=== PATIENT | female | born 1945 | race Hispanic/Latino ===

== ENCOUNTER → 2023-10-03 | Outpatient (CLI) | payer OTHER ==
[2023-10-03 10:11] LABS: CREATININE 1.1 mg/dL (0.5-1.0)
== END | disposition home or self-care (01) ==
LOC: LAB 09:24
PROVIDERS: ATTEND Surgery
DX: K57.92 Diverticulitis of intestine, part unspecified, without perforation or abscess without bleeding (principal)
CPT/HCPCS: 36415; 82565; 84520

== ENCOUNTER → 2023-10-12 | Outpatient (CLI) | payer OTHER ==
[~2023-10-12] MED LIST: IOHEXOL-350 75 ML VIAL IV ONE
== END | disposition home or self-care (01) ==
LOC: RAH 09:54
PROVIDERS: ATTEND Surgery
DX: K43.9 Ventral hernia without obstruction or gangrene (principal); K42.9 Umbilical hernia without obstruction or gangrene; N28.1 Cyst of kidney, acquired; N32.89 Other specified disorders of bladder; K57.92 Diverticulitis of intestine, part unspecified, without perforation or abscess without bleeding; I70.90 Unspecified atherosclerosis; M47.815 Spondylosis without myelopathy or radiculopathy, thoracolumbar region
CPT/HCPCS: 74177; Q9967

== ENCOUNTER 2023-11-30 06:48 | Day surgery (SDC) | payer OTHER, MEDICARE ==
[2023-11-30] VITALS (11 sets, daily range): BP systolic 104–142; BP diastolic 43–65; PULSE 59–68; RESP 13–21; TEMP 97.8–97.9
[~2023-11-30] VITALS: Ht 144.8 cm; Wt 65.8 kg
[~2023-11-30 06:48] MED LIST changes: +ALEN70TA80 PO; +ATOR40TA69 PO; +EMPA25TA PO; -IOHEXOL-350 75 ML VIAL IV ONE; +LEVO25CA4 PO; +LINA5TAB PO; +LISI40TA9 PO; +METF-444 PO; +OMEP20CA12 PO; +PREG50 PO
[2023-11-30] MEDS: 0.9%NACL 1000ML 1,000 ML IV ONE (07:22)
[2023-11-30] MEDS ORDERED: proPOFol 10 MG/ML 20ML VIAL IV ONE (09:02)
== END 2023-11-30 10:40 | disposition home or self-care (01) ==
LOC: ENDO 06:48 → DAH 06:48 → ENDO 10:40
PROVIDERS: ATTEND Internal Medicine Gastroenterology
DX: R93.3 Abnormal findings on diagnostic imaging of other parts of digestive tract (principal); D17.5 Benign lipomatous neoplasm of intra-abdominal organs; K83.9 Disease of biliary tract, unspecified; K92.9 Disease of digestive system, unspecified; K29.70 Gastritis, unspecified, without bleeding; B96.81 Helicobacter pylori [H. pylori] as the cause of diseases classified elsewhere; K57.92 Diverticulitis of intestine, part unspecified, without perforation or abscess without bleeding; D12.6 Benign neoplasm of colon, unspecified; K59.04 Chronic idiopathic constipation; I10 Essential (primary) hypertension; E11.9 Type 2 diabetes mellitus without complications; E78.00 Pure hypercholesterolemia, unspecified; F41.9 Anxiety disorder, unspecified; M81.0 Age-related osteoporosis without current pathological fracture; M19.90 Unspecified osteoarthritis, unspecified site; Z85.038 Personal history of other malignant neoplasm of large intestine; Z98.49 Cataract extraction status, unspecified eye; Z88.8 Allergy status to other drugs, medicaments and biological substances; Z79.84 Long term (current) use of oral hypoglycemic drugs; Z79.899 Other long term (current) drug therapy
CPT/HCPCS: 43237; 82948 ×2; J7030 ×2; J2704; A4620; A4215 ×2; A4223; A4657; A4222; A4221; A4663; A4606; J3490

== ENCOUNTER 2024-12-14 06:47 | Observation (INO) | payer OTHER, MEDICARE ==
[2024-12-12 12:04] LABS: IMMATURE GRANULOCYTE ABSOLUTE 0.02 K/uL (0-1); NUCLEATED RED BLOOD CELLS 0.0 % (0.0-0.19); PLATELET COUNT (AUTO) 143 K/uL (130-400); RED BLOOD CELL COUNT(AUTO) 3.75 MIL/uL (4.00-5.50); RED CELL DISTRIBUTION WIDTH 13.7 % (11.0-15.5); WHITE BLOOD COUNT (AUTO) 6.7 K/uL (4.8-10.8)
[2024-12-12 12:12] LABS: APPEARANCE,URINE CLEAR (CLEAR); GLUCOSE, URINE (UA) >=1000 mg/dL (NEGATIVE); LEUKOCYTE ESTERASE ,URINE NEGATIVE Leu/uL (NEGATIVE); NITRATE,URINE NEGATIVE (NEGATIVE); OCCULT BLOOD,URINE NEGATIVE (NEGATIVE)
[2024-12-12 12:13] LABS: ADD UA MICROSCOPIC YES
[2024-12-12 12:14] LABS: SQUAMOUS EPITHELIAL CELL,UR RARE /HPF (0-2)
[2024-12-12 12:15] VITALS: BP 143/67; PULSE 78; RESP 18; TEMP 97.5
--- NOTE | 2024-12-12 12:43 | NUR ---
IS DONE BY MARISELA.
[2024-12-14] VITALS (28 sets, daily range): BP systolic 113–167; BP diastolic 49–86; PULSE 71–96; RESP 14–18; TEMP 97.2–98.4; O2SAT 96–99
[~2024-12-14] VITALS: Ht 144.8 cm; Wt 68.6 kg
[~2024-12-14 06:47] MED LIST changes: -ALEN70TA80 PO; +CYCL-309 PO; +DOCU100T PO; +FERR-72 PO; +FOLI1 PO; -LEVO25CA4 PO; +LEVO25CA5 PO; +LISI40TA15 PO; -LISI40TA9 PO; -OMEP20CA12 PO; +SIME-12 PO
[2024-12-14] MEDS: 0.9%NACL 1000ML 1,000 ML IV ONE (06:53)
[2024-12-14] MEDS ORDERED: TRANEXAMIC ACID 1000MG/10ML ONE (07:20)
[2024-12-14] MEDS ORDERED: VANCOMYCIN 500MG+NS 100ML 100 ML IV ONE (07:21)
[2024-12-14] MEDS: SUGAMMADEX SODIUM 200 MG/2 ML VIAL IV ONE (07:56)
[2024-12-14] MEDS: VANCOMYCIN 1G VIAL IV ONE (08:19)
[2024-12-14] MEDS: TRANEXAMIC ACID 1000MG/10ML IV ONE (08:34)
[2024-12-14] MEDS ORDERED: PROMETHAZINE HCL 25 MG/ML 1ML AMPULE IM PRN (09:00)
[2024-12-14] MEDS ORDERED: SUCCINYLCHOLINE CHLORIDE 20 MG/ML 10 ML VIAL ONE (10:38)
[2024-12-14] MEDS ORDERED: LIDOCAINE PF 100MG/5ML (2%) SYRINGE 5ML ONE (10:38)
[2024-12-14] MEDS ORDERED: MIDAZOLAM HCL 1 MG/ML 2ML VIAL ONE (10:39)
[2024-12-14] MEDS ORDERED: PoTASSium chl 10% ELIXIR 20MEQ 20 MEQ/15 ML UDCUP PO PRN (11:00)
[2024-12-14] MEDS ORDERED: FERROUS FUMARATE 324 MG TABLET PO PRN (11:00)
[2024-12-14] MEDS ORDERED: CALCIUM CARB 500MG PO PRN (11:00)
[2024-12-14] MEDS ORDERED: PoTASSium chloRIDE 20MEQ ER 20 MEQ ERTAB PO PRN (11:00)
--- NOTE | 2024-12-14 11:00 | OP ---
Operative Note: DATE OF PROCEDURE: 12/14/24 SURGEON: BJORN CARRANZA MD MENTAL HEALTH CONSULTANT: [Leila Dunn CFA] ANESTHESIA: [General anesthesia plus regional block] ANESTHESIOLOGIST/FREIGHT HANDLER: [Adrian Magallanes CRNA] PREOPERATIVE DIAGNOSIS: [Right knee osteoarthritis] POSTOPERATIVE DIAGNOSIS: [Same] IMPLANTS: [Biomet vanguard. Femur size 62.5, PS right. Tibia size 67 fixed cruciate. Tibial liner size12 x 63/67 PS plus, patella size 31 X 8 asymmetric] PROCEDURE: [Right total knee arthroplasty] ESTIMATED BLOOD LOSS: [Less than 100 mL] INDICATIONS: [The patient is a 79-year-old female with a history of severe osteoarthritis in both of her knees. The patient has developed a flexion contracture as well as a very restricted range of motion secondary to large osteophytes present in the posterior aspect of the joint. The patient has been treated conservatively with no improvement and she has been admitted for a right total knee arthroplasty. Procedure understood, risks, benefits and possible complications and agreed to sign the consent form.] DESCRIPTION OF PROCEDURE: [After adequate general anesthesia was achieved and regional block obtained the right lower extremity was prepped and draped in the usual manner previous placement of the tourniquet in the proximal thigh. The extremity was then elevated and exsanguinated with an Esmarch bandage and the tourniquet inflated to 250 mmHg the Esmarch band been then removed. With the knee in minimal flexion due to the inability to flex properly secondary to posterior osteophytes present a longitudinal incision was made in the anterior aspect through the skin followed by dissection of the subcutaneous tissue. A bone infusion needle was then inserted just medial to the tibial tuberosity and through this needle we injected into the bone a solution of normal saline 50 mL mixed with 500 mg of vancomycin. The needle was removed. A paramedian approach was then made with the Bovie cautery cutting through the quadriceps tendon, medial patellar retinaculum and patellar tendon retinaculum. The retropatellar tendon fat was then excised and the soft tissue elements of the tibia were elevated subperiosteally and retractors were applied medially and laterally . The anterior cruciate ligament was absent. Due to the significant tightness and difficulty to expose the distal femur after removing all the peripheral osteophytes we proceeded to extend the knee and varsha the patella and proceeded to do the cut to the articular surface with the use of the oscillating saw, which he was room to applied then a retractor in the lateral aspect of the tibia and then being able to start working in the distal femur. With the use of a drill a starting hole was made in the distal femur entering the intramedullary canal and then after removal of the drill an intramedullary guide was inserted with a 5 degree valgus block that touched the distal femur and to this the distal femoral cutting guide was then applied anteriorly and was secured to the distal femur with the use of pins. The intramedullary guide was then removed and with the use of the oscillating saw we proceeded to resect the distal femur removing the fragments and the guide. The femoral sizer was then applied distally and drill holes were made removing the sizer and the 4-in-1 cutting block was then inserted and the anterior, posterior and chamfer cuts were made removing the fragments and the block. The PS cutting guide was then inserted and the intercondylar cut was made removing the fragment and the guide. The posterior cruciate ligament retractor was then inserted posterior to the tibia and this was brought forward proceeding then to apply the external tibial alignment guide and secured the proximal cutting guide to the tibia with the use of pins. With the use of the oscillating saw the proximal cut to the tibia tibia was made. The bone fragment was removed as well as the peripheral osteophytes and the trial tibia plate was chosen. At this point the menisci were removed sharply and with the use of the curved osteotome the posterior osteophytes of the femur were removed. This allowed to flex the knee much better The trial components were then inserted at the femur and tibia with a trial tibial liner bringing the knee into extension noticing that the patient had a very stable knee in flexion, extension and with valgus and varus stress after the medial collateral ligament was released subperiosteally from the proximal tibia. The knee was maintained in extension and the patella was then addressed proceeding restore the height with application of a trial component after 3 peg holes were made. The patellofemoral ligament was removed and then the patellofemoral tracking was checked noticing to be normal. At this moment all the components were removed, the tibia after the metaphyseal defect was created and while cement was being mixed on the back table we proceeded to irrigate the joint with antibiotic solution and then cover the entry to the femoral canal with a bone plug. Once the cement was ready we proceeded to apply it first to the tibia surface inserting the final component and then to the femoral surface and inserted the final component removing the excess cement and then applying a trial liner bringing the knee into extension for compression. Then we proceeded to irrigate the patella surface and dried it applying then bone cement and the final patellar component was inserted and was secured with application of a clamp. The joint was irrigated with a warm diluted Betadine solution while the cement dried followed by irrigation with antibiotic solution. The trial liner was removed as well as the patellar clamp and we proceeded then to irrigate the posterior aspect of the joint to remove all the remaining debris and the final tibial liner was inserted and locked against the tibia. The range of motion was checked and noticed to be adequate with full extension and flexion, no laxity in valgus or varus stress and with adequate patellofemoral tracking. The patient had no anterior or posterior drawer. The tourniquet was then deflated and this was followed by hemostasis and the wound was then closed with approximation of the quadriceps tendon, patellar retinaculum and patellar tendon retinaculum with #1 Vicryl close stitches alternating with #1 Ethibond stitches, and closure of the subcutaneous tissue with 2-0 Monocryl inverted stitches and the skin was closed with 3-0 Monocryl subcuticularly. The wound was covered with a suction dressing followed by application of an Collin bandage for compression and the drapes were then removed transferring the patient to the hospital bed and taken to recovery room for follow-up by anesthesia. There were no complications during the procedure.] BJORN CARRANZA MD Dec 14, 2024 11:00
[2024-12-14] MEDS: TRANEXAMIC ACID 1000MG/10ML ONE (11:33)
--- NOTE | 2024-12-14 12:27 | NUR ---
PATIENT ARRIVED TO MED SURG ROOM 403, ALERT AND ORIENTED X 3, REPORT RECEIVED FROM ELOY. PATIENT REPORTING RIGHT KNEE PAIN OF 5 TO 6 ON PAIN SCALE
[2024-12-14] MEDS: HYDROcodone/APAP 5/325 1 TAB TABLET PO PRN (12:53)
[2024-12-14] MEDS: 0.9%NACL 1000ML 1,000 ML IV SCH (13:25)
--- NOTE | 2024-12-14 14:00 | NUR ---
NURSING NOTE RECEIVED REPORT FROM ANTONI COFFMAN, ASSUMED CARE OF PATIENTS.
--- NOTE | 2024-12-14 16:44 | NUR ---
D/C PLAN CM spoke to patient and daughter Eliza at bedside. Patient lives with daughter. Daughter is patient's provider. Denies having any home health. Reports the following DME: standard walker (no wheels), bedside commode, cane, wheelchair. CM discussed returning home vs short term SNF/rehab. Daughter reports patient will have assistance 06/09. CM offered in [employer]. Obtained [facility] for any in [facility] home health. CM sent referral to [facility] per MD recommendations. CM to fax referral and follow up. Addendum: 12/14/24 at 1648 by TEE GRANADOS Amended: Links added.
--- NOTE | 2024-12-14 17:00 | NUR ---
ORTHO COORDINATOR: TEACHING REGARDING DVT AND PNEUMONIA PREVENTION, PAIN EXPECTATIONS AND PAIN MANAGEMENT. PATIENT IN BED, B SCD SLEEVES IN PLACE AND FUNCTIONING. LISBET SYSTEM IN PLACE AND FUNCTIONING, LIGHT FLASHING GREEN. ICE PACK TO SURGICAL KNEE. INCENTIVE SPIROMETER ON BEDSIDE. TABLE. PATIENT ENGLISH SPEAKING ONLY. HOSPITAL RESTAURANT OPERATIONS MANAGER UNAVAILABLE, USED FAMILY TO TRANSLATE. PATIENT RETURN DEMONSTRATED PROPER USE OF INCENTIVE SPIROMETER AND VERBALIZED PROPER FREQUENCY OF USE. PATIENT RETURN DEMONSTRATED PROPER FOOT FLEXION AND EXTENSION EXERCISES. RATIONALE FOR BOTH PROVIDED. LISBET DRESSING SYSTE REVIEWED, INDICATED IT IS TO BE REMOVED ONE WEEK FROM SURGERY. PAIN MANAGEMENT STRATEGY REVIEWED. NUMERIC PAIN SCALE REVIEWED. PATIENT INTENDS TO DISCHARGE HOME WITH HOME HEALTH PHYSICAL THERAPY, EXPECTATIONS AND NEXT STEPS IN PROCESS DISCUSSED. SET EXPECTATIONS FOR PATIENT TO SHOWER TOMORROW, RATIONALE PROVIDED. NO ADDITIONAL QUESTIONS OR CONCERNS AT THIS TIME.
[2024-12-14] MEDS ORDERED: FERROUS SULFATE 325 MG TABLET.DR PO SCH (18:00)
[2024-12-14] MEDS: CYCLOBENZAPRINE HCL 10 MG TABLET PO SCH (20:34)
[2024-12-15] VITALS (9 sets, daily range): BP systolic 91–132; BP diastolic 41–57; PULSE 81–96; RESP 17–18; TEMP 98.1–98.4; O2SAT 94–96
[2024-12-15 04:10] LABS: NUCLEATED RED BLOOD CELLS 0.0 % (0.0-0.19); PLATELET COUNT (AUTO) 123.0 K/uL (130-400); RED BLOOD CELL COUNT(AUTO) 2.95 MIL/uL (4.00-5.50); RED CELL DISTRIBUTION WIDTH 14.1 % (11.0-15.5); WHITE BLOOD COUNT (AUTO) 8.8 K/uL (4.8-10.8)
[2024-12-15 04:32] LABS: CREATININE 1.6 mg/dL (0.5-1.0); GLOMERULAR FILTR. RATE CALC 33.0 mL/min (>90); GLUCOSE,RANDOM 136.0 mg/dL (70-105); SODIUM SERUM 139.0 mmol/L (136-145); UREA NITROGEN, BLOOD 26.0 mg/dL (7-18)
[2024-12-15] MEDS: LISINOPRIL 40 MG TABLET PO SCH (09:00)
[2024-12-15] MEDS: EMPAGLIFLOZIN 25MG TABLET PO SCH (09:51)
--- NOTE | 2024-12-15 15:06 | PN ---
POD # 1, S/P R TKA VSS, afebrile. Labs reviewed Did poor with PT this morning Awake, alert, oriented, Seated on the bed with legs dangling. Family present. In goo spirits Pain moderate to severe but helped with medications. In no respiratory distress RLE with intact dressing, mild edema, distal NV intact. A: S/P right TKA. Plan: continue with PT. Awaiting approval for HH. PT recommended NH but patient refuses and wants to go home. Will dismiss tomorrow after PT. Vitals/Labs Vital Signs Date Time Temp Pulse Resp B/P (MAP) Pulse Ox O2 Delivery O2 Flow Rate FiO2 12/15/24 11:41 98.2 83 18 106/41 94 Room Air 12/14/24 20:17 2.0 12/14/24 20:00 21 Laboratory Tests 12/15/24 03:27 Medications Current Medications Cefazolin Sodium 2 gm STK-MED ONCE .ROUTE; Start 12/14/24 at 06:53; Stop 12/14/24 at 06:53; Status DC Sodium Chloride 1,000 ml @ As Directed STK-MED ONCE IV; Start 12/14/24 at 06:53; Stop 12/14/24 at 06:53; Status DC Tranexamic Acid 1,000 mg STK-MED ONCE .ROUTE; Start 12/14/24 at 07:20; Stop 12/14/24 at 07:21; Status DC Cefazolin Sodium 1 gm STK-MED ONCE .ROUTE; Start 12/14/24 at 07:20; Stop 12/14/24 at 07:21; Status DC Vancomycin HCl 100 ml @ As Directed STK-MED ONCE IV; Start 12/14/24 at 07:21; Stop 12/14/24 at 07:21; Status DC Ondansetron HCl 4 mg AD PRN IVP; Start 12/14/24 at 09:00; Stop 12/14/24 at 11:09; Status DC Metoclopramide HCl 10 mg AD PRN IVP; Start 12/14/24 at 09:00; Stop 12/14/24 at 12:34; Status DC Promethazine HCl 25 mg AD PRN IM; Start 12/14/24 at 09:00; Stop 12/14/24 at 11:09; Status DC Ketorolac Tromethamine 30 mg AD PRN IV; Start 12/14/24 at 09:00; Stop 12/14/24 at 11:09; Status DC Morphine Sulfate 2 mg AD PRN IVP; Start 12/14/24 at 09:00; Stop 12/14/24 at 11:09; Status DC Fentanyl Citrate 25 mcg Q5MIN PRN IVP; Start 12/14/24 at 09:00; Stop 12/14/24 at 11:09; Status DC Naloxone HCl 0.1 mg AD PRN IVP; Start 12/14/24 at 09:00; Stop 12/14/24 at 12:34; Status DC Cefazolin Sodium 2 gm STK-MED ONCE IVPB Last administered on 12/14/24at 08:34; Start 12/14/24 at 08:34; Stop 12/14/24 at 09:01; Status DC Tranexamic Acid 1,000 mg STK-MED ONCE IV Last administered on 12/14/24at 08:34; Start 12/14/24 at 08:34; Stop 12/14/24 at 09:01; Status DC Vancomycin HCl 1 gm STK-MED ONCE IV Last administered on 12/14/24at 08:19; Start 12/14/24 at 08:19; Stop 12/14/24 at 09:01; Status DC Cefazolin Sodium 3 gm STK-MED ONCE IVPB Last administered on 12/14/24at 08:22; Start 12/14/24 at 08:22; Stop 12/14/24 at 09:01; Status DC Fentanyl Citrate 100 mcg STK-MED ONCE .ROUTE; Start 12/14/24 at 10:07; Stop 12/14/24 at 10:07; Status DC Lidocaine HCl 100 mg STK-MED ONCE .ROUTE; Start 12/14/24 at 10:38; Stop 12/14/24 at 10:38; Status DC Ondansetron HCl 4 mg STK-MED ONCE .ROUTE; Start 12/14/24 at 10:38; Stop 12/14/24 at 10:38; Status DC Ketamine HCl 50 mg STK-MED ONCE .ROUTE; Start 12/14/24 at 10:38; Stop 12/14/24 at 10:38; Status DC Succinylcholine Chloride 200 mg STK-MED ONCE .ROUTE; Start 12/14/24 at 10:38; Stop 12/14/24 at 10:39; Status DC Ephedrine Sulfate 50 mg STK-MED ONCE .ROUTE; Start 12/14/24 at 10:39; Stop 12/14/24 at 10:39; Status DC Propofol 200 mg STK-MED ONCE IV; Start 12/14/24 at 10:39; Stop 12/14/24 at 10:39; Status DC Phenylephrine HCl 10 mg STK-MED ONCE IV; Start 12/14/24 at 10:39; Stop 12/14/24 at 10:39; Status DC Midazolam HCl 2 mg STK-MED ONCE .ROUTE; Start 12/14/24 at 10:39; Stop 12/14/24 at 10:39; Status DC Rocuronium Gap 50 mg STK-MED ONCE .ROUTE; Start 12/14/24 at 10:39; Stop 12/14/24 at 10:39; Status DC Fentanyl Citrate 100 mcg STK-MED ONCE .ROUTE; Start 12/14/24 at 10:39; Stop 12/14/24 at 10:39; Status DC Sodium Chloride 1,000 ml @ 100 mls/hr Q10H IV Last administered on 12/15/24at 06:05; Start 12/14/24 at 11:00; Stop 12/15/24 at 10:59; Status DC Polyethylene Glycol 17 gm DAILY PO Last administered on 12/15/24at 09:50; Start 12/15/24 at 09:00; Stop 01/14/25 at 08:59 Bisacodyl 10 mg DAILY PRN RC; Start 12/17/24 at 11:00; Stop 01/16/25 at 10:59 Ketorolac Tromethamine 15 mg Q6H PRN IV Last administered on 12/14/24at 15:30; Start 12/14/24 at 11:00; Stop 12/19/24 at 10:59 Ferrous Fumarate 324 mg DAILY PRN PO; Start 12/14/24 at 11:00; Stop 01/13/25 at 10:59 Temazepam 15 mg HS PRN PO; Start 12/14/24 at 11:00; Stop 01/13/25 at 10:59 Ondansetron HCl 4 mg Q6H PRN IVP; Start 12/14/24 at 11:00; Stop 01/13/25 at 10:59 Calcium Carbonate 500 mg Q12H PRN PO; Start 12/14/24 at 11:00; Stop 01/13/25 at 10:59 Diphenhydramine HCl 25 mg Q6H PRN IVP; Start 12/14/24 at 11:00; Stop 01/13/25 at 10:59 Insulin Human Regular INSULIN SLIDING SCAL... ACHS SQ Last administered on 12/14/24at 20:39; Start 12/14/24 at 11:30; Stop 01/13/25 at 11:29 Cefazolin Sodium 2 gm Q8H IVP Last administered on 12/15/24at 00:04; Start 12/14/24 at 16:00; Stop 12/15/24 at 00:01; Status DC Potassium Chloride 100 ml @ 100 mls/hr AD PRN IV; Start 12/14/24 at 11:00; Stop 01/13/25 at 10:59 Potassium Chloride 20 meq AD PRN PO; Start 12/14/24 at 11:00; Stop 01/13/25 at 10:59 Potassium Chloride 20 meq AD PRN PO; Start 12/14/24 at 11:00; Stop 01/13/25 at 10:59 Acetaminophen/ Hydrocodone Bitart Q4H PRN PO Last administered on 12/15/24at 12:04; Start 12/14/24 at 11:00; Stop 12/19/24 at 10:59 Tranexamic Acid 1,000 mg STK-MED ONCE .ROUTE Last administered on 12/14/24at 11:33; Start 12/14/24 at 11:31; Stop 12/14/24 at 11:32; Status DC Fentanyl Citrate 100 mcg STK-MED ONCE .ROUTE Last administered on 12/14/24at 11:41; Start 12/14/24 at 11:37; Stop 12/14/24 at 11:38; Status DC Atorvastatin Calcium 40 mg HS PO Last administered on 12/14/24at 20:34; Start 12/14/24 at 21:00; Stop 01/13/25 at 20:59 Cyclobenzaprine HCl 50 mg PM PO Last administered on 12/14/24at 20:34; Start 12/14/24 at 21:00; Stop 01/13/25 at 20:59 Empaglifozin 25 mg DAILY PO Last administered on 12/15/24at 09:51; Start 12/15/24 at 09:00; Stop 01/14/25 at 08:59 Linagliptin 5 mg HS PO Last administered on 12/14/24at 20:34; Start 12/14/24 at 21:00; Stop 01/13/25 at 20:59 Lisinopril 40 mg DAILY PO; Start 12/15/24 at 09:00; Stop 01/14/25 at 08:59 Metformin HCl 500 mg BID PO Last administered on 12/15/24at 09:51; Start 12/14/24 at 21:00; Stop 01/13/25 at 20:59 Docusate Sodium 100 mg AD PO; Start 12/14/24 at 18:00; Stop 01/13/25 at 17:59 Ferrous Sulfate 325 mg Q3D PO; Start 12/14/24 at 18:00; Stop 01/13/25 at 17:59 Levothyroxine Sodium 25 mcg SYN PO Last administered on 12/15/24at 06:08; Start 12/15/24 at 06:30; Stop 01/14/25 at 06:29 Pregabalin 50 mg AM PO Last administered on 12/15/24at 09:51; Start 12/15/24 at 09:00; Stop 01/14/25 at 08:59 BJORN CARRANZA MD Dec 15, 2024 15:06
--- NOTE | 2024-12-15 17:47 | NUR ---
PT NOTE This PT present when Dr. Montanez educated patient and caregivers regarding DC plan and plan of care, the importance of walking and participation with PT. This PT requested pain meds from nurse Drew as patient reports having last pain meds 5-6 hours prior. Pt agreeable and voiced understanding. Pt medicated and able to walk around bed in room max assist x1 and max cues. In PM session once again PT had to ask for pain medication for patient. Pt voicing that walking made her pain worse 10/10 and that she did not want to walk again. Family encouraging patient. Nurse provided meds. Pt continues to resist gait. Education provided about the goals for therapy, the purpose of gait, and her DC plan. PT continues to recommend SNF but patient wants to go home. This patient is high risk of readmit for pain and/ or issues related to mobility due to resistance to care. Family very supportive, but patient arguing and fighting with them. Pt does not seen to want to ask for pain medication. In PM patient walked 40 ft taking approximately 20 minutes to do so and max cues. Back to [facility] for meal with family.
[2024-12-16 00:06] VITALS: BP 134/59; PULSE 95; RESP 18; TEMP 97.8
[2024-12-16 03:48] VITALS: BP 130/53; PULSE 89; RESP 20; TEMP 97.5
[2024-12-16 08:00] VITALS: O2SAT 95
[2024-12-16 08:01] VITALS: BP 131/54; PULSE 91; RESP 16; TEMP 99.5
[2024-12-16] MEDS ORDERED: AEC81 PO (11:42)
[2024-12-16] MEDS ORDERED: HYDR-4060 PO (11:42)
[2024-12-16] MEDS: ENOXAPARIN SODIUM 30 MG/0.3 ML SQ ONE (11:49)
--- NOTE | 2024-12-16 11:55 | DS ---
DISCHARGE SUMMARY [Date of admission: 12/14/2024 Date of discharge: 12/16/2024 Final diagnosis: Right Knee osteoarthritis Surgical procedures: Right total Knee arthroplasty on 12/14/2024 Summary of History and Physical: The patient is a 79 year-old female with history of severe arthrosis to the right knee that has been present for several years and has been treated conservatively with no longer adequate response to treatment. The patient is being admitted for total knee arthroplasty. Previous medical history: Diabetes, hypertension, hyperthyroidism, history of colon cancer Previous surgical history: , colon resection, hernia repair, cataract Family history: Diabetes mellitus, cancer Social history: Negative for use of tobacco or alcohol. Allergies: IV iodine, shrimp. Review of system: Negative on admission Hospital course: The patient was admitted and taken to the operating room for a total knee arthroplasty, procedure that went uneventful. Postoperatively the patient remained hemodynamically stable and afebrile. The patient received antibiotic and anticoagulation prophylaxis as per protocol. The patient was evaluated by physical therapy and started rehabilitation treatment with ambulation with the use of walker, weightbearing as tolerated, range of motion exercises and bed transfers. The patient was also evaluated by case management and arrangements were made for discharge. The patient tolerated diet well. On postop day #2 all the arrangements were completed. The dressing was changed and the wound was noted to be stable and the patient was dismissed. Condition on discharge: Good Disposition: The patient will be dismissed home with home health. Follow-up will be done at the office in 3 weeks. The patient is to continue with physical therapy and rehabilitation at home and be ambulatory with the use of a walker, weightbearing as tolerated. I have recommended for the patient to use a tennis shoe or a regular shoe on the left foot and the hospital soak in the right foot to ambulate at home to try to maintain the extension of the operated knee as straight as possible and avoid a flexion contracture in the future. Continue taking pain medication as instructed as well as anticoagulation prophylaxis. Continue with home medications also as instructed and continue with pre admissi on diet.] BJORN CARRANZA MD Dec 16, 2024 11:54
[2024-12-16 12:40] VITALS: BP 124/60; PULSE 82; RESP 16; TEMP 98.5
--- NOTE | 2024-12-16 15:27 | NUR ---
REPORT [facility] Attempted to call report to [facility]. Call received by Tracy. She will get message to appropriate staff and have them call nurse back at . Patient notified that pending report being received for Home Health to discharge to home.
--- NOTE | 2024-12-16 15:48 | NUR ---
REPORT [facility] Chyna with [facility] returned call. Report given. David dressing removal date, December [id number]. Follow up appointment with Dr. Montanez at clinic January 04, @ 8:15am. Prescription medications already verifed ready for pick-up at pharmacy: Aspirin 81mg PO BID x 20 day. Hydrocodone/Acetaminophen 5-325mg 1-2 tabs PO x 7 days, # 42 dispensed. Patient given instructions to call office if runs out of pain medication, must call 2-3 days BEFORE last pill is taken. Home Health will see patient in the morning.
== END 2024-12-16 16:00 | disposition home health service (06) ==
LOC: DAH 06:47 → DAHIP 06:48 → DAH 06:48 → 4AH 12:25
PROVIDERS: ADMIT Orthopaedic Surgery; ATTEND Orthopaedic Surgery
DX: M17.11 Unilateral primary osteoarthritis, right knee (principal); M25.561 Pain in right knee; I10 Essential (primary) hypertension; E11.9 Type 2 diabetes mellitus without complications; Z85.038 Personal history of other malignant neoplasm of large intestine; Z79.899 Other long term (current) drug therapy; Z98.890 Other specified postprocedural states
CPT/HCPCS: 85025; 87086; 81001; 36415 ×2; 87641; 64447; 96374; 96375; 27447; 82948 ×9; 88311; 88304; 97161; 97530 ×11; 96376; 80048; 85027; 97116 ×3; 96372; J1815 ×2; G0378 ×53; A4223 ×2; A4663; J7120; J0690 ×6; J3373 ×2; J3010 ×3; J3490 ×6; J0330; J7030; J2003; J2250; J2704; J2405; J1885; J2371; A9272; A4649 ×3; A4930 ×2; C1713; C1776; A5120; A4215; A4213; A4222; A4221; A4216; J1650